=== PATIENT | male | born 1975 | race Caucasian/White ===

== ENCOUNTER 2017-01-27 20:29 | Inpatient (IN) | payer BC, OTHER ==
[~2017-01-27] VITALS: Ht 193 cm; Wt 124.7 kg
--- NOTE | 2017-01-27 21:10 | NUR ---
PRE-ADMISSION NOTE Patient is 41-year-old male seen at intake alert and oriented x4, mild anxiety noted, no SOB noted at this time. Discussed with patient the admission policies of the unit. Patient is coherent and able to respond to questions appropriately. Pt is ambulatory with steady gait. Initial vital signs taken and as follows: BP: 137/93, P: 98, R: 16, O2: 97%, T: 97.9, PA: 0/10. Patient verbalized understanding of instructions and teachings regarding disposal of narcotic and other controlled home medications, unit protocols such as taking of vital signs Q4H and handling and disposal of contraband. Will continue with admission upon patient's arrival on the unit.
[2017-01-27 21:30] LABS: *AMPHETAMINE, URINE NEGATIVE (NEGATIVE); *BARBITURATE, URINE NEGATIVE (NEGATIVE); *CANNABINOID, URINE NEGATIVE (NEGATIVE); *COCCAINE, URINE NEGATIVE (NEGATIVE); *OPIATE, URINE NEGATIVE (NEGATIVE); *PHENCYCLIDINE SCREEN,URINE NEGATIVE (NEGATIVE)
--- NOTE | 2017-01-27 21:50 | NUR ---
ADMISSION NOTE Patient is a 41-year-old male admitted on 01/27/17 for ETOH dependence; arrived on the unit at 2126. Patient has NKA, denies history of seizures. Pt was able to provide UDS at intake. Upon admission, during assessment patient scored CIWA of 16, nauseous with one episode of emesis, visibly trembling . BP: 137/93, P: 98, R: 16, O2: 97%, T: 97.9, PA: 0/10. Weight 275, height 64". Pt reports he does not have a PCP, denies smoking, but reports being hospitalized within past 30 days related to detox. Pt is able to understand and respond to all questions pertaining to his hospitalization. Substance Abuse History is as follows: Vodka approximately 1.75 L daily for the last 5 days, last intake of this amount was 0800 01/27/17. Prior to the last 5 days, patient reports he was sober for three weeks. Before the 3-week sobriety, patient reports having relapsed for 3 days, 1.75L of vodka/daily. And before the 3 day period, patient reports a 3-month sobriety from June-August 2016. Patient reports this was his longest period of sobriety. He reports that he has been drinking alcohol since he was [id number]. Per patient, Treatment history: 2 previous treatments - the first treatment center he does not remember the name of, however the second location was in [place], called [facility], May 2016. Patient reports is father's father was an alcoholic, no other family history of substance abuse. PMH: Patient denies past medical history, with exception to HTN related to drinking, and anxiety related to withdrawal. Pt denies any hx of seizures. Pt did not bring any medications from home, but reports taking milk thistle. Upon assessment, patient is alert and oriented x4 and has become noticeably anxious and agitated, stating "I don't feel good. I feel nauseous and I just threw up in the bathroom. I feel a little delirious." Patient presents with anxiety, skin is flushed, respirations are even but becoming labored. Patient denies SOB, but states that his chest "started to hurt a few minutes ago." Patient has only had one episode of emesis. Bowel sounds active x 4, abdomen soft and nontender. PERRLA. Skin intact, no open wounds noted. Pt denies SI/HI. Educational information provided and left at bedside. Pt oriented to room and encouraged to notify staff with any concerns. Safety measures in place. Call light within reach, side rails up x 2, bed locked and in low position. Will report with charge nurse to administer PRN medications; will continue to monitor.
[2017-01-27] MEDS ORDERED: ACETAMINOPHEN 325 MG TABLET PO PRN (22:00)
[2017-01-27] MEDS ORDERED: LORAZEPAM 1 MG TABLET PO PRN (22:00)
[2017-01-27] MEDS ORDERED: MAG HYDROX/AL HYDROX/SIMETH 30 ML LIQUID UDC PO PRN (22:00)
[2017-01-27] MEDS ORDERED: THIAMINE HCL 200 MG/2 ML VIAL IM ONE (22:00)
[2017-01-27] MEDS ORDERED: HYDROXYZINE PAMOATE 25 MG CAPSULE PO PRN (22:00)
[2017-01-27] MEDS ORDERED: LOPERAMIDE HCL 2 MG CAPSULE PO PRN ×2 (22:00)
[2017-01-27] MEDS: ONDANSETRON 4 MG/2 ML VIAL IM PRN (22:00)
[2017-01-27] MEDS ORDERED: MIRALAX 17 GM POWD.PACK PO PRN (22:00)
[2017-01-27] MEDS ORDERED: MAGNESIUM HYDROXIDE 30 ML LIQUID UDC PO PRN (22:00)
[2017-01-27] MEDS ORDERED: IBUPROFEN 400 MG TABLET PO PRN (22:00)
[2017-01-27] MEDS ORDERED: LORAZEPAM 2 MG/1 ML VIAL IM PRN (22:00)
[2017-01-27] MEDS ORDERED: DICYCLOMINE HCL 20 MG TABLET PO PRN (22:00)
[2017-01-27] MEDS: LORAZEPAM 1 MG TABLET PO PRN (22:01)
--- NOTE | 2017-01-27 22:01 | NUR ---
PRN ZOFRAN IM AND ATIVAN PO Patient was given PRN Zofran IM for nausea and emesis x1. Patient was given PRN Ativan 2mg PO for anxiety and CIWA score of 16. Safety measures in place, patient's bed locked in low position, side rails up x2, call light within reach, will reassess PRN Zofran in 30 minutes, and PRN Ativan in one hour.
[2017-01-27] MEDS ORDERED: LORAZEPAM 1 MG TABLET ONE (22:14)
[2017-01-27] MEDS ORDERED: THIAMINE HCL 200 MG/2 ML VIAL ONE (22:14)
--- NOTE | 2017-01-27 22:31 | NUR ---
OTONIEL GIBBONS REASSESSMENT Patient states that he has experienced little to no improvement in his nausea. Patient has no recent episode of emesis. Patient's respirations continue to be even and deep, moderately labored. Safety measures are in place, call light within reach, will continue to monitor.
--- NOTE | 2017-01-27 23:01 | NUR ---
PRN ATIVAN REASSESSMENT Patient states that he's "not feeling better." Patient reports "it feels like it's getting worse." Patient post CIWA score is still 16; PRN Ativan not effective. Charge nurse made aware. Safety measures in place, call light within reach, will continue to monitor.
[2017-01-27 23:12] LABS: BASOPHILS % (AUTO) 0.4 % (0.0-2.0); EOSINOPHILS % (AUTO) 0.3 % (0.0-7.0); HEMATOCRIT 44.8 % (40-50); HEMOGLOBIN 15.7 G/DL (14.0-18.0); LYMPHOCYTES # (AUTO) 3.1 K/UL (0.8-4.8); LYMPHOCYTES % (AUTO) 32.7 % (20.5-51.5); MEAN CORPUSCULAR HEMOGLOBIN 32.8 UUG (27.0-31.0); MEAN CORPUSCULAR HGB CONC 35 g/dL (32.0-37.0); MEAN CORPUSCULAR VOLUME 93.6 FL (82.0-92.0); MONOCYTES # (AUTO) 0.5 K/UL (0.1-1.30); MONOCYTES % (AUTO) 5.5 % (0.0-11.0); NEUTROPHILS % (AUTO) 61.1 % (38.5-71.5); PLATELET COUNT (AUTO) 273 K/UL (150-450); RED BLOOD CELL COUNT(AUTO) 4.79 MIL/UL (4.7-6.1); WHITE BLOOD COUNT (AUTO) 9.6 K/UL (4.0-11.2)
[2017-01-27 23:23] LABS: BILIRUBIN,TOTAL 1.2 mg/dL (0.2-1.0); CREATININE 0.9 mg/dL (0.6-1.3); POTASSIUM 3.3 mmol/L (3.5-5.1); TOTAL PROTEIN, SERUM 8.3 g/dL (6.4-8.2)
[2017-01-27 23:29] LABS: THYROID STIMULATING HORMONE 8.088 mIU/mL (0.358-3.740)
[2017-01-27 23:48] LABS: MAGNESIUM 1.2 mg/dL (1.8-2.4)
[2017-01-28] VITALS: BP 149/96
[2017-01-28] MEDS ORDERED: IV D5W-0.45% NS 1000 ML BAG IV PRN
[2017-01-28] MEDS: LORAZEPAM 1 MG TABLET PO PRN ×2 (00:10→09:11)
--- NOTE | 2017-01-28 00:10 | NUR ---
PRN ATIVAN Patient's current CIWA score is 20. PRN Ativan 2mg given PO as ordered. Patient's bed is locked in low position, side rails up x2, call light within reach. Will continue to monitor, will reassess in one hour.
--- NOTE | 2017-01-28 00:15 | NUR ---
RN note critical Mag Level Mag level=1.2. Dr. Riggs notified. ordered Mag Sulfate 4 gms IV. Pt also started on IVF D5 1/2NS at 100 ml/hr, to finish 2 bags. IV access to left hand #22, patent and intact.
[2017-01-28] MEDS ORDERED: CLONIDINE HCL 0.1 MG TABLET ONE (00:16)
[2017-01-28] MEDS ORDERED: LORAZEPAM 1 MG TABLET ONE (00:17)
[2017-01-28] MEDS: CLONIDINE HCL 0.1 MG TABLET PO PRN (00:26)
--- NOTE | 2017-01-28 00:26 | NUR ---
PRN CLONIDINE Patient reports "starting to feel worse" at around midnight; patient is observably anxious and agitated and he reports chills. PRN Clonidine 0.1mg given PO for anxiety and agitation. Patient's bed is locked in low position, side rails up x2, safety measures in place, call light within reach. Will reassess in one hour.
[2017-01-28] MEDS: MAGNESIUM SULFATE/D5W 100 ML IV SCH ×4 (00:32→03:20)
[2017-01-28] MEDS ORDERED: MAGNESIUM SULFATE/D5W 200 ML ONE ×2 (00:33→00:58)
--- NOTE | 2017-01-28 00:40 | NUR ---
RN note KDur Pt's K=3.3. Dr. Riggs notified, with order to administered KDur 40 MEQs one-time PO. Primary nurse to administer.
[2017-01-28] MEDS: ONDANSETRON ODT 4 MG TAB.RAPDIS SL PRN ×2 (00:48→06:56)
--- NOTE | 2017-01-28 00:49 | NUR ---
PRN ZOFRAN AND KDUR Patient complains of moderate nausea with no recent episodes of emesis. PRN Zofran 4mg was given sublingual. PRN KDUR 40 MEQ was given PO for low potassium level of 3.3. Patient is mildly uncomfortable, due to nausea, respirations even and deep, slightly labored. Patient's bed is locked in low position, side rails up x2, call light within reach. Will reassess PRN Zofran in 30 minutes.
[2017-01-28] MEDS ORDERED: POTASSIUM CHLORIDE 20 MEQ TAB.PRT.SR ONE (01:00)
[2017-01-28] MEDS ORDERED: POTASSIUM CHLORIDE 20 MEQ TAB.PRT.SR PO ONE (01:00)
[2017-01-28] MEDS ORDERED: ONDANSETRON ODT 4 MG TAB.RAPDIS ONE (01:02)
--- NOTE | 2017-01-28 01:10 | NUR ---
PRN ATIVAN REASSESSMENT Patient reports some improvement in overall condition; Post-CIWA score is 16 at this time. Patient's respirations are even and unlabored at this time. PRN Ativan effective. Safety measures are in place, patient's IV site is patent and intact, call light within reach; will continue to monitor.
--- NOTE | 2017-01-28 01:19 | NUR ---
PRN ZOFRAN REASSESSMENT Patient reports noticeable improvement in nausea, although not completely resolved. Patient states that currently the mild nausea is tolerable and continuing to improve. PRN Zofran effective. Safety measures in place, will continue to monitor.
--- NOTE | 2017-01-28 01:26 | NUR ---
PRN CLONIDINE REASSESSMENT Patient reports "feeling better" and appears less anxious and less agitated. Patient's most recent CIWA score is 16. Patient's respirations are even and unlabored. Safety measures are in place, call light within reach, will continue to monitor.
[2017-01-28 04:00] VITALS: BP 143/88
--- NOTE | 2017-01-28 04:00 | NUR ---
0400 CIWA DEFERRED Patient is asleep, unable to obtain CIWA score at this time; deferred. To be assessed when patient is awake, per protocol. Safety measures in place, IV site patent and intact, call light within reach. Will continue to monitor.
[2017-01-28] MEDS ORDERED: DICYCLOMINE HCL 10 MG CAPSULE PO PRN (06:30)
--- NOTE | 2017-01-28 06:55 | NUR ---
PRN ZOFRAN Patient complains of nausea, no episode of emesis. PRN Zofran given sublingual. Will reassess in 30 minutes. Safety measures in place, call light within reach.
--- NOTE | 2017-01-28 07:25 | NUR ---
PRN ZOFRAN REASSESSMENT Patient reports "I feel better now" when asked about nausea. PRN Zofran effective, saftey measures in place, call light within reach, will endorse to day shift.
--- NOTE | 2017-01-28 07:30 | NUR ---
END OF SHIFT Patient is a 41-year-old male admitted on 01/27/17 for ETOH dependence; arrived on the unit at 2125. Patient has NKA, denies history of seizures, and is FULL code. Patient has 22g IV on his left hand, patent and intact, currently receiving 5% dextrose infusing at 100mL/hr. Patient has already receive 4 grams of magnesium via IV for low Mag level. Patient receieved the following PRNs: Zofran IM, Ativan 2mg PO, Clonidine 0.1mg PO, Ativan 2mg PO, Zofran 4mg SL, KDUR 40 MEQ and last PRN Zofran SL at 0655. Patient's last CIWA was 16. Patient slept for 5 hours, total intake 1500mL, void x5 (as of 707), stool x0. Patient is of fall and seizure precautions, with no history of seizure. Safety measures in place, bed locked in low position, side rails up x2, call light withint reach. Will endorse to day shift.
--- NOTE | 2017-01-28 07:30 | NUR ---
start of shift note: received pt from maintenance mechanic 2nd shift nurse, pt is in stable condition at this time, IV site on L hand is patent and infusing well. pt is tolerating fluids. pt is [facility]H WITHDRAWAL/DEPENDENCE. will monitor pt for any changes. and continue to meet pt's needs
[2017-01-28 09:00] VITALS: BP 109/70
[2017-01-28] MEDS ORDERED: TUBERCULIN,PURIF.PROT.DERIV. 5 TU/0.1 ML TEST ID ONE (09:00)
[2017-01-28] MEDS: ONDANSETRON 4 MG/2 ML VIAL IM PRN (09:10)
[2017-01-28] MEDS: MULTIVITAMINS,THERAPEUTIC TABLET PO SCH (09:10)
[2017-01-28] MEDS: THIAMINE HCL 100 MG TABLET PO SCH (09:11)
[2017-01-28] MEDS: FOLIC ACID 1 MG TABLET PO SCH (09:11)
--- NOTE | 2017-01-28 09:11 | NUR ---
PRN ADMINISTRATION: PT WITH CIWA OF 16, 2 MG was administered as well zofran IM. PT IS NOTED WITH TREMORS, SWEATING, AND NAUSEATED.
--- NOTE | 2017-01-28 09:30 | NUR ---
TB SKIN TEST: pt refused, verbalized he is going to show positive, R/T to receiving a vaccine, communicated with Dr.Diamond JEFFREY aware with no new orders at this time
--- NOTE | 2017-01-28 09:40 | NUR ---
PRN RE-ASSESSMENT: ZOFRAN WAS EFFECTIVE PT IS SLEEPING COMFORTABLY IN BED
[2017-01-28] MEDS ORDERED: LORAZEPAM 1 MG TABLET PO ONE (12:00)
[2017-01-28] MEDS ORDERED: GABAPENTIN 300 MG CAPSULE PO ONE (12:00)
--- NOTE | 2017-01-28 12:32 | NUR ---
Therapist prompted client about group times. Client stated he would start attending groups once he feels better.
[2017-01-28 13:30] VITALS: BP 133/84
[2017-01-28] MEDS ORDERED: ONDANSETRON 4 MG/2 ML VIAL IV PRN (14:00)
[2017-01-28] MEDS ORDERED: IV NS 1000 ML 1,000 ML IV PRN (14:00)
[2017-01-28] MEDS: LORAZEPAM 1 MG TABLET PO SCH ×2 (14:35→21:29)
[2017-01-28 17:11] VITALS: BP 120/73
--- NOTE | 2017-01-28 18:44 | NUR ---
END OF SHIFT NOTE: PT IS IN STABLE CONDITION, NO S/S OF PAIN OR DISCOMFORT PT IS ADMITTED TO [facility] FOR [facility]H WITHDRAWAL/DEPENDENCE. PT HAS AN IV ON LEFT HAND. PATENT AT THIS TIME. PT VERBALIZED HE WANTED TO TAKE A BREAK FROM THE IV FLUIDS. EXPLAINED RISK AND BENEFITS. PT IS IN BED AND RESTING. PT WITH NEW ORDER THAT WAS STARTING TODAY OF NS AT 125ML/HR. PT'S LAST CIWA IS 10. WILL ENDORSE PT TO HVAC ENGINEERING TECHNICIAN NURSE.
--- NOTE | 2017-01-28 19:15 | NUR ---
START OF SHIFT NOTE : Patient is a 41-year-old male admitted on 01/27/17 for ETOH dependence; arrived on the unit at 2126. Patient has NKA, denies history of seizures, and is FULL code. Patient has 22g IV on his left hand, patent and intact, currently receiving 0.9% NCl infusing at 125mL/hr. Pt. complains of increased level of anxiety, mild body ache. Safety measures in place : bed on lowest position with side rails x2 up for safety, call light within reach. Will continue to monitor closely and offer help.
[2017-01-28 20:00] VITALS: BP 144/100
[2017-01-28] MEDS ORDERED: MAGNESIUM OXIDE 400 MG TABLET PO ONE (21:00)
[2017-01-28] MEDS: GABAPENTIN 300 MG CAPSULE PO SCH (21:29)
[2017-01-29] VITALS: BP 115/65
--- NOTE | 2017-01-29 06:37 | NUR ---
END OF SHIFT NOTE : Patient is a 41-year-old male admitted on 01/27/17 for ETOH dependence; arrived on the unit at 2126. Patient has NKA, denies history of seizures, and is FULL code. IV drip is finished. Pt remains compliant with the treatment plan. No PRNs were given during my shift. V/S remain WNL. RR=16, even and unlabored, lungs clear upon auscultation, abdomen soft and non- distended. Pt denies nausea, vomiting and diarrhea.CIWA taken when pt. was alert during the night, LAST CIWA=4 at 0400 , INTAKE= 1400+IV800 ml, voided x 3, slept 7 hours. Safety measures in place : bed on lowest position with side rails x2 up for safety, call light within reach. Will continue to monitor closely and offer help.
[2017-01-29 07:19] LABS: BILIRUBIN,DIRECT 0.3 mg/dL (0.0-0.2); CREATININE 0.9 mg/dL (0.6-1.3); MAGNESIUM 2.1 mg/dL (1.8-2.4); PHOSPHOROUS 4.4 mg/dL (2.5-4.9); POTASSIUM 4.2 mmol/L (3.5-5.1)
--- NOTE | 2017-01-29 07:20 | NUR ---
Start of shift note SBAR report rcv'd. Pt was admitted for ETOH dependence. Pt has a PMHx of HTN, anxiety, and a back injury. Pt is a full code, on a regular diet and denies any allergies. Pt is on day 2 of his 4 day ativan taper. Per report pt completed 2 bags of IVF. Pt is currently resting in bed, pt states that he is comfortable at this time. Pt has no complaints. Will continue to monitor pt. All needs addressed at this time.
[2017-01-29 07:26] LABS: THYROID STIMULATING HORMONE 12.919 mIU/mL (0.358-3.740)
[2017-01-29 08:00] VITALS: BP 118/76
[2017-01-29] MEDS: LORAZEPAM 1 MG TABLET PO SCH ×3 (08:54→21:37)
[2017-01-29] MEDS: GABAPENTIN 300 MG CAPSULE PO SCH ×3 (08:54→21:37)
[2017-01-29] MEDS: MULTIVITAMINS,THERAPEUTIC TABLET PO SCH (08:54)
[2017-01-29] MEDS: THIAMINE HCL 100 MG TABLET PO SCH (08:54)
[2017-01-29] MEDS: FOLIC ACID 1 MG TABLET PO SCH (08:54)
--- NOTE | 2017-01-29 08:57 | NUR ---
PRN administration Pt c/o back pain 07/09. Administered PRN motrin per MD order. Will continue to monitor pt.
--- NOTE | 2017-01-29 09:57 | NUR ---
Reassessment Pt is sleeping at this time. No signs of pain noted. Will continue to monitor pt.
[2017-01-29 11:09] LABS: HEPATITIS B SURFACE AG Negative (Negative)
[2017-01-29 12:07] VITALS: BP 147/100
--- NOTE | 2017-01-29 12:30 | NUR ---
IV d/c IV d/c'd per MD order, pt tolerated well.
[2017-01-29 16:30] VITALS: BP 160/100
[2017-01-29] MEDS: CLONIDINE HCL 0.1 MG TABLET PO PRN (16:41)
--- NOTE | 2017-01-29 16:41 | NUR ---
PRN administration Pt has BP of 160/100. Administered PRN clonidine per MD order. Will continue to monitor pt.
--- NOTE | 2017-01-29 17:41 | NUR ---
Unable to reassess pt Pt is off unit, will reassess upon arrival on unit.
--- NOTE | 2017-01-29 18:35 | NUR ---
End of shift note Pt was admitted for ETOH dependence. Pt has a PMHx of HTN, anxiety, and a back injury. Pt is a full code, on a regular diet and denies any allergies. Pt is on day 2 of his 4 day ativan taper and tolerating well. Pt has a recent CIWA of 3 at 1600. Pt IVF d/c'd. Pt ate 100% of meals, drank 2884ml of fluids and had 3 voids during the shift. Pt required 1 PRN motrin for his chronic back pain and 1 clodine for his elevated BP. Pt has no complaints at this time. Will continue to monitor pt. Will endorse SBAR to oncoming nurse.
[2017-01-29 18:40] VITALS: BP 140/95
--- NOTE | 2017-01-29 18:40 | NUR ---
Reassessment Pt BP is 140/95. Medication was effective.
--- NOTE | 2017-01-29 19:15 | NUR ---
START OF SHIFT NOTE : Patient is a 41-year-old male admitted on 01/27/17 for ETOH dependence; arrived on the unit at 2126. Patient has NKA, denies history of seizures, and is FULL code. Pt is placed on 4 day ativan taper on 01/28/2017 and tolerating well. Pt has a recent CIWA of 3 at 1600.Pt. complains of mild body ache. Safety measures in place : bed on lowest position with side rails x2 up for safety, call light within reach. Will continue to monitor closely and offer help.
[2017-01-29 20:00] VITALS: BP 126/79
--- NOTE | 2017-01-30 06:52 | NUR ---
END OF SHIFT NOTE : Patient is a 41-year-old male admitted on 01/27/17 for ETOH dependence; arrived on the unit at 2126. Patient has NKA, denies history of seizures, and is FULL code. Pt remains compliant with the treatment plan. No PRNs were given during my shift. V/S remain WNL. RR=16, even and unlabored, lungs clear upon auscultation, abdomen soft and non- distended. Pt denies nausea, vomiting and diarrhea.CIWA taken when pt. was alert during the night, LAST CIWA= 3 at 0400 , NOVJNU=1445 ml, voided x3 , slept8 hours. Safety measures in place : bed on lowest position with side rails x2 up for safety, call light within reach. Will continue to monitor closely and offer help.
[2017-01-30 07:49] LABS: BILIRUBIN,DIRECT 0.2 mg/dL (0.0-0.2); BILIRUBIN,TOTAL 0.9 mg/dL (0.2-1.0); CREATININE 0.8 mg/dL (0.6-1.3); MAGNESIUM 1.8 mg/dL (1.8-2.4); TOTAL PROTEIN, SERUM 7.5 g/dL (6.4-8.2)
[2017-01-30 07:55] LABS: THYROID STIMULATING HORMONE 9.992 mIU/mL (0.358-3.740)
[2017-01-30 08:03] VITALS: BP 118/78
--- NOTE | 2017-01-30 08:05 | NUR ---
START OF SHIFT: RECEIVED PT A/O X 4. HE REPORTS SOME ANXIETY AND STATES THE DETOX MEDS ARE EFFECTIVE. CIKYLEIGH 2.ATIVAN TAPER IN PROGRESS TO MANAGE S/S OF W/D. HE STATES HE IS ATTENDING GROUPS. WILL CONTINUE TO MONITOR AND OFFER SUPPORT.
[2017-01-30] MEDS: MULTIVITAMINS,THERAPEUTIC TABLET PO SCH (08:39)
[2017-01-30] MEDS: GABAPENTIN 300 MG CAPSULE PO SCH ×3 (08:39→21:29)
[2017-01-30] MEDS: FOLIC ACID 1 MG TABLET PO SCH (08:39)
[2017-01-30] MEDS: THIAMINE HCL 100 MG TABLET PO SCH (08:40)
[2017-01-30] MEDS ORDERED: LORAZEPAM 1 MG TABLET PO SCH (09:00)
[2017-01-30 12:00] VITALS: BP 118/78
--- NOTE | 2017-01-30 14:10 | NUR ---
Therapist prompted client about group times. Client plans to attend all groups today.
[2017-01-30] MEDS: LORAZEPAM 1 MG TABLET PO SCH ×2 (15:21→21:29)
[2017-01-30 16:00] VITALS: BP 160/104
[2017-01-30] MEDS: CLONIDINE HCL 0.1 MG TABLET PO PRN (16:55)
--- NOTE | 2017-01-30 17:00 | NUR ---
PRN CLONIDINE GIVEN FOR ELEVATED BP160/104 P 91. WILL MONITOR EFFECTIVENESS.
--- NOTE | 2017-01-30 18:00 | NUR ---
BP 153/105 P 91 CLONIDINE NOT EFFECTIVE WILL CALL .
--- NOTE | 2017-01-30 18:28 | NUR ---
MD COMMUNICATION NEW ORDER FOR APRESOLINE 50 MG PO Q 6 HRS PRN WITH PARAMETERS. WILL ADMINISTER AFTER PHARMACY VERIFIES MEDICATION.
--- NOTE | 2017-01-30 19:00 | NUR ---
END OF SHIFT; PT CONTINUES ON ATIVAN TAPER. LAST CIWA 4. HE ATTENDED GROUPS AND COMPLIANT WITH INCREASED FLUIDS. HIS BP BECAME ELEVATED THIS AFTERNOON AND HE WAS ASYMPTOMATIC. CLONIDINE PRN GIVEN AND ONLY MILDLY EFFECTIVE. NEW ORDER FOR APRESOLINE PER MD. WILL ENDORSE TO CABLE MECHANIC.WILL PASS SHIFT REPORT TO ONCOMING NIGHT NURSE.
--- NOTE | 2017-01-30 19:00 | NUR ---
WILL ENDORSE APRESOLINE ADMINISTRATION TO NIGHT NURSE PT IN H&I MEETING.
[2017-01-30 20:00] VITALS: BP 146/98
--- NOTE | 2017-01-30 20:00 | NUR ---
START OF SHIFT NOTE RECEIVED REPORT FROM DAY SHIFT NURSE. PATIENT IS A 41 YEAR OLD MALE ADMITTED FOR ETOH DEPENDENCE. PATIENT IS ON 2ND DAY OF HIS 4 DAY ATIVAN TAPER. PATIENT REPORTS PMH OF HTN, ANXIETY AND BACK INJURY. NO SEIZURE HISTORY. UPON ADMISSION , PATIENT REPORTS DRINKING VODKA 1.75 ML DAILY FOR 5 DAYS. SKIN INTACT. PATIENT WAS GIVEN PRN CLONIDINE, BP WAS 160/104 IT WENT DOWN TO 153/105. WAS NOTIFIED AND MADE AND NEW ORDER OF APRESOLINE PRN. LAST CIWA 4. RECEIVED PATIENT IN HIS ROOM. PATIENT STATES MEDICATIONS ARE EFFECTIVE IN CONTROLLING HIS WITHDRAWAL SYMPTOMS, ANAMARIA ANY PAIN AT THIS TIME, NO N/V, ANXIOUS , NOTED WITH FINE TREMORS.APPETITE IS GOOD, ENCOURAGE TO PARTICIPATE IN GROUPS. ON FALL/SEIZURE PRECAUTION. SAFETY MEASURES IN PLACE. CALL LIGHT IN REACH. WILL CONTINUE TO MONITOR.
[2017-01-30] MEDS: diphenhydrAMINE 50 MG CAPSULE PO PRN (22:09)
--- NOTE | 2017-01-30 22:09 | NUR ---
PRN BENADRYL ADMINISTRATION PATIENT REQUESTS FOR SLEEP AID, PRN BENADRYL GIVEN. WILL MONITOR FOR EFFECTIVENESS
--- NOTE | 2017-01-30 23:09 | NUR ---
DANY RE-ASSESSMENT PATIENT ASLEEP AT THIS TIME. RESPIRATION EVEN AND UNLABORED. WILL CONTINUE TO MONITOR.
[2017-01-31] VITALS: BP 128/81
--- NOTE | 2017-01-31 | NUR ---
CIWA DEFERRED PATIENT SLEEPING. CIWA DEFERRED. RESPIRATION EVEN AND UNLABORED. SAFETY MEASURES IN PLACE. CALL LIGHT IN REACH. WILL CONTINUE TO MONITOR
[2017-01-31 04:00] VITALS: BP 118/87
--- NOTE | 2017-01-31 04:00 | NUR ---
CIWA DEFERRED PATIENT SLEEPING. CIWA DEFERRED. RESPIRATION EVEN AND UNLABORED. SAFETY MEASURES IN PLACE. CALL LIGHT IN REACH. WILL CONTINUE TO MONITOR
--- NOTE | 2017-01-31 07:33 | NUR ---
END OF SHIFT NOTE PATIENT IS A 41 YEAR OLD MALE ADMITTED FOR ETOH DEPENDENCE. PATIENT IS ON 2ND DAY OF HER 4 DAY ATIVAN TAPER, TOLERATED WELL, NO ADVERSE REACTION. NEW ORDER OF APRESOLINE PRN. PATIENT STATES MEDICATIONS ARE EFFECTIVE IN CONTROLLING HIS WITHDRAWAL SYMPTOMS, PATIENT WAS GIVEN PRN BENADRYL FOR SLEEP. PATIENT COMPLAINT WITH MEDICATIONS. ENCOURAGE PATIENT TO ATTEND AND PARTICIPATE IN GROUPS. ON FALL/SEIZURE PRECAUTION. SAFETY MEASURES IN PLACE. CALL LIGHT IN REACH. WILL CONTINUE TO MONITOR. SLEPT 6 HOURS. FLUID INTAKE 900 ML. VOIDED X 2 . NO BM. LAST CIWA 6 .
--- NOTE | 2017-01-31 07:35 | NUR ---
start of shift note: received pt from power and recovery shift engineer nurse, pt is in stable condition, no s/s of pain or discomfort. pt 's last ciwa is 6. pt is [facility] for [facility] withdrawal/dependence. will continue to monitor pt for any changes and continue to meet pts needs
[2017-01-31] MEDS: THIAMINE HCL 100 MG TABLET PO SCH (08:55)
[2017-01-31] MEDS: MULTIVITAMINS,THERAPEUTIC TABLET PO SCH (08:55)
[2017-01-31] MEDS: GABAPENTIN 300 MG CAPSULE PO SCH ×3 (08:55→20:57)
[2017-01-31] MEDS: FOLIC ACID 1 MG TABLET PO SCH (08:55)
[2017-01-31 09:00] VITALS: BP 120/75
[2017-01-31] MEDS ORDERED: LORAZEPAM 1 MG TABLET PO SCH (09:00)
--- NOTE | 2017-01-31 12:19 | NUR ---
Assumed Care: Assumed care for the patient at this time. Patient is a 41 year old male admitted for ETOH dependence who was placed on a 4-day Ativan taper as ordered. No adverse reactions noted. Prior to admission, patient was using 1.75L of Vodka daily x 5-days. Has past medical hx of HTN, anxiety, and back injury. NKA. FULL CODE. Regular diet. On fall and seizure precautions. Educated patient on his current plan of care for the day and his medication regimen. Encouraged oral fluid fluid intake and encouraged group participation to learn new skills to prevent relapse. Will continue to monitor. Addendum: 01/31/17 at 1741 by CORNELIUS KOO LVN Error in charting. Patient's care was not transferred over.
[2017-01-31] MEDS: hydrALAZINE HCL 50 MG TABLET PO PRN ×2 (12:44→20:57)
--- NOTE | 2017-01-31 12:44 | NUR ---
PRN ADMINISTRATION: hydralazine was administered for resident's B/P 160/89, will re-assess effectiveness of medication. pt verbalized without pain or discomfort.
--- NOTE | 2017-01-31 13:44 | NUR ---
prn re-assessment: pt's b/p is 134/84, pt is in stable condition
[2017-01-31 13:50] VITALS: BP 142/98
[2017-01-31 17:26] VITALS: BP 133/89
[2017-01-31] MEDS ORDERED: CLON0.1T14 PO (18:43)
[2017-01-31] MEDS ORDERED: IBUP-1953 PO (18:43)
[2017-01-31] MEDS ORDERED: HYDR-3895 PO (18:43)
[2017-01-31] MEDS ORDERED: GABA-534 PO (18:43)
--- NOTE | 2017-01-31 18:58 | NUR ---
END OF SHIFT NOTE: PT IS IN STABLE CONDITION, NO S/S OF PAIN OR DISCOMFORT. PT IS ADMITTED TO [facility] FOR ETOH WITHDRAWAL/DEPENDENCE. PTS LAST CIWA 2. PT COMPLETED TAPER WELL NO A/R NOTED. PT'S B/P IS STABILIZED AT THIS TIME. WILL ENDORSE PT TO C PYTHON DEVELOPER NURSE
[2017-01-31 20:00] VITALS: BP 152/97
--- NOTE | 2017-01-31 20:00 | NUR ---
Start of Shift Patient is a 41-year old, male, admitted for ETOH dependence. Pt placed on Ativan taper and taper has finished with no adverse reactions. Patient with history of detox-induced Hypertension, Anxiety and Sports-related Back Injury. Pt denies a seizure history. Pt is Full Code, with NKA and on Regular Diet. Pt is AAOx4, with no anxiety noted and no SOB observed. No tremors seen upon assessment. Pt is ambulatory with steady gait and with no skin issues. Fall, seizure, safety and universal precautions in place. Call light within reach. No c/o pain at this time. Latest CIWA=2 . For discharge tomorrow to [facility] and pt is aware. Will continue to monitor pt.
--- NOTE | 2017-01-31 20:58 | NUR ---
RN note Hydralazine PRN Pt with BU=283/96, pulse=87. Administered Hydralazine 50 mg PO as ordered. Will reassess.
--- NOTE | 2017-01-31 22:02 | NUR ---
RN note reassess Pt's BP [id number]=611/92, pulse=84
[2017-02-01] VITALS: BP 142/91
[2017-02-01] MEDS: CLONIDINE HCL 0.1 MG TABLET PO PRN (00:23)
[2017-02-01] MEDS: diphenhydrAMINE 50 MG CAPSULE PO PRN (00:23)
--- NOTE | 2017-02-01 00:27 | NUR ---
RN note PRN Benadryl and Clonidine Pt c/o inability to sleep and increasing anxiety. SC=226/88, pulse=91. Administered Benadryl 50 mg PO and Clonidine 0.1 mg PO as ordered. Will reassess.
--- NOTE | 2017-02-01 01:32 | NUR ---
RN note reassess Pt asleep on bed, with no SOB nor facial grimacing noted.
[2017-02-01 04:00] VITALS: BP 129/84
--- NOTE | 2017-02-01 07:15 | NUR ---
End of Shift Patient is a 41-year old, male, admitted for ETOH dependence. Pt placed on Ativan taper and taper has finished with no adverse reactions. Patient with history of detox-induced Hypertension, Anxiety and Sports-related Back Injury. Pt denies a seizure history. Pt is Full Code, with NKA and on Regular Diet. Pt is AAOx4, with no anxiety noted and no SOB observed. No tremors seen upon assessment. Pt is ambulatory with steady gait and with no skin issues. Fall, seizure, safety and universal precautions in place. Call light within reach. No c/o pain at this time. Latest CIWA=1, slept for 6 hours . For discharge today to [facility] and pt is aware. Endorsed to AM shift nurse for continuity of care.
[2017-02-01 08:00] VITALS: BP 134/81
--- NOTE | 2017-02-01 08:05 | NUR ---
START OF SHIFT: RECEIVED PT A/O X 4. HE STATES THE ATIVAN TAPER HE COMPLETED WAS EFFECTIVE. CIWA 1. HE STATES HE FEELS MOTIVATED TOWARD RECOVERY. DISCHARGE PLANNING IN PROGRESS FOR THIS AM. WILL CONTINUE TO MONITOR AND OFFER SUPPORT.
[2017-02-01] MEDS: FOLIC ACID 1 MG TABLET PO SCH (08:12)
[2017-02-01] MEDS: GABAPENTIN 300 MG CAPSULE PO SCH (08:12)
[2017-02-01] MEDS: MULTIVITAMINS,THERAPEUTIC TABLET PO SCH (08:13)
[2017-02-01] MEDS: THIAMINE HCL 100 MG TABLET PO SCH (08:13)
--- NOTE | 2017-02-01 09:30 | NUR ---
DISCHARGE: PT IS A/O X4. HE DENIES S/I AND H/I. HE STATES HE IS MOTIVATED TO STAY SOBER AND FEELS ENTHUSIASTIC. BELONGINGS RETURNED. EDUCATED PT ON DISCHARGE INSTRUCTIONS AND MEDICATIONS. SUPERVISOR OF OPERATIONS ESCORTED PT TO [facility] WHERE HE WAS TRANSPORTED BY [facility] TO [facility] AT 0920.
== END 2017-02-01 09:20 | disposition home or self-care (01) | DRG 895 ==
LOC: SRC 20:37
PROVIDERS: ADMIT Internal Medicine; ATTEND Internal Medicine
PROC: HZ2ZZZZ Detoxification Services for Substance Abuse Treatment (ICD-10-PCS; principal; 2017-01-27)
PROC: HZ41ZZZ Group Counseling for Substance Abuse Treatment, Behavioral (ICD-10-PCS; 2017-01-29)
PROC: HZ31ZZZ Individual Counseling for Substance Abuse Treatment, Behavioral (ICD-10-PCS; 2017-01-30)
DX: F10.230 Alcohol dependence with withdrawal, uncomplicated (principal); K70.10 Alcoholic hepatitis without ascites; I15.9 Secondary hypertension, unspecified; E83.42 Hypomagnesemia; E87.1 Hypo-osmolality and hyponatremia; F41.9 Anxiety disorder, unspecified; Y90.6 Blood alcohol level of 120-199 mg/100 ml; Z81.1 Family history of alcohol abuse and dependence; G89.29 Other chronic pain; M54.5 Low back pain; E86.1 Hypovolemia; E07.81 Sick-euthyroid syndrome; R73.9 Hyperglycemia, unspecified
CPT/HCPCS: 36415; 70030-TC; 80307; 83690; 83735; 84100; 84443; 85025; 86592; 86705; 86803; 87340; 87806; G0480; J2405; J3411; J3475; Q0162; Q0163

== ENCOUNTER 2022-10-21 22:07 | Emergency (ER) | payer BC, OTHER ==
[~2022-10-21] VITALS: Ht 198.1 cm; Wt 117.9 kg
[~2022-10-21 22:07] MED LIST: CLON0.1T14 PO; DICY20TA2 PO; GABA-534 PO; HYDR-3895 PO; IBUP-1953 PO; ONDA4TAB11 SL
[2022-10-21 22:56] LABS: CALCIUM 7.7 mg/dL (8.5-10.1); CARBON DIOXIDE 28 mmol/L (21-32); CHLORIDE 103 mmol/L (98-107); GLUCOSE 122 mg/dL (74-106); POTASSIUM 3.3 mmol/L (3.5-5.1); SODIUM SERUM 143 mmol/L (136-145); UREA NITROGEN, BLOOD 16 mg/dL (7-18)
[2022-10-21 23:01] LABS: ALANINE AMINOTRANSFERASE 108 U/L (16-63); ALBUMIN 3.9 g/dL (3.4-5.0); ALKALINE PHOSPHATASE 97 U/L (50-136); ASPARTATE AMINOTRANSFERASE 144 U/L (15-37); BILIRUBIN,DIRECT 0.4 mg/dL (0.0-0.2); BILIRUBIN,TOTAL 1.7 mg/dL (0.2-1.0); TOTAL PROTEIN, SERUM 7.1 g/dL (6.4-8.2)
[2022-10-21 23:02] LABS: BASOPHILS % (AUTO) 0.8 % (0.0-2.0); EOSINOPHILS # (AUTO) 0.1 K/uL (0.0-0.7); EOSINOPHILS % (AUTO) 2.5 % (0.0-7.0); HEMATOCRIT 42.9 % (36.7-47.1); HEMOGLOBIN 14.6 g/dL (12.5-16.3); LYMPHOCYTES # (AUTO) 2.4 K/uL (0.8-4.8); LYMPHOCYTES % (AUTO) 48.9 % (20.5-51.5); MEAN CORPUSCULAR HEMOGLOBIN 33.2 uug (23.8-33.4); MEAN CORPUSCULAR HGB CONC 34 g/dL (32.5-36.3); MEAN CORPUSCULAR VOLUME 97.2 fL (73.0-96.2); MONOCYTES # (AUTO) 0.2 K/uL (0.1-1.30); MONOCYTES % (AUTO) 4.5 % (0.0-11.0); NEUTROPHILS # (AUTO) 2.1 K/uL (1.8-8.9); NEUTROPHILS % (AUTO) 43.3 % (38.5-71.5); PLATELET COUNT (AUTO) 184 K/uL (152-348); RED BLOOD CELL COUNT(AUTO) 4.41 MIL/uL (4.06-5.63); RED CELL DISTRIBUTION WIDTH 13.3 % (12.1-16.2); WHITE BLOOD COUNT (AUTO) 4.9 K/uL (3.6-10.2)
[2022-10-21 23:04] LABS: ACETAMINOPHEN < 2.0 ug/mL (10-30)
[2022-10-21 23:08] LABS: ETHANOL 293 MG/DL (0-10)
[2022-10-21 23:20] LABS: *BILIRUBIN,URIN NEGATIVE (NEGATIVE); *BLOOD, URINE 1+ (NEGATIVE); *CLARITY,URINE CLEAR (CLEAR); *COLOR,URINE YELLOW (YELLOW); *KETONES,URINE TRACE (NEGATIVE); *PROTEIN,URINE 1+ (NEGATIVE); *UROBILINOGEN,URINE 0.2 E.U./dl (NORMAL); LEUKOCYTE ESTERASE ,URINE NEGATIVE (NEGATIVE); NITRITE, URINE NEGATIVE (NEGATIVE); PH,URINE 5.5 (5.0-8.0); UGLUCOSE NEGATIVE (NEGATIVE)
[2022-10-21 23:54] LABS: BACTERIA,URINE NONE SEEN /HPF (NONE SEEN); SQUAMOUS EPITHELIAL CELL,UR NONE SEEN /HPF (NONE SEEN); WBC,URINE 0-3 /HPF (0-3)
[2022-10-22 00:03] LABS: *AMPHETAMINE, URINE NEGATIVE (NEGATIVE); *BARBITURATE, URINE NEGATIVE (NEGATIVE); *BENZODIAZEPINE, URINE NEGATIVE (NEGATIVE); *CANNABINOID, URINE NEGATIVE (NEGATIVE); *COCCAINE, URINE NEGATIVE (NEGATIVE); *OPIATE, URINE NEGATIVE (NEGATIVE); *PHENCYCLIDINE SCREEN,URINE NEGATIVE (NEGATIVE); FENTANYL, URINE NEGATIVE (NEGATIVE)
[2022-10-22] MEDS ORDERED: POTASSIUM CHLORIDE 50 ML ONE ×2 (01:00→02:18)
[2022-10-22] MEDS: POTASSIUM CHLORIDE 50 ML IV SCH ×2 (01:28→02:28)
[2022-10-22 03:45] VITALS: BP 120/86; TEMP 98.4; O2SAT 98
== END 2022-10-22 03:44 | disposition other institution (70) ==
LOC: ER 22:12
DX: F10.129 Alcohol abuse with intoxication, unspecified (principal); F19.90 Other psychoactive substance use, unspecified, uncomplicated; R51.9 Headache, unspecified; Z79.1 Long term (current) use of non-steroidal anti-inflammatories (NSAID); Z79.2 Long term (current) use of antibiotics; Z79.899 Other long term (current) drug therapy; Y90.8 Blood alcohol level of 240 mg/100 ml or more
CPT/HCPCS: 36415; 70450; 85025; A4663; C1758; G0480; J3480